=== PATIENT | female | born 1945 | race Two or more races ===

== ENCOUNTER 2018-08-08 09:45 | Emergency (ER) | payer SELFPAY ==
[~2018-08-08] VITALS: Ht 154.9 cm; Wt 68.2 kg
[2018-08-08 09:47] VITALS: BP 134/73
[2018-08-08] MEDS ORDERED: ACAR100T2 PO (09:56)
[2018-08-08] MEDS ORDERED: METF-446 PO (09:56)
[2018-08-08] MEDS ORDERED: PIOG15TA23 PO (09:56)
[2018-08-08] MEDS ORDERED: ENAL10TA PO (09:56)
[2018-08-08] MEDS ORDERED: SIMV20TA6 PO (09:56)
[2018-08-08] MEDS ORDERED: GLIP10TA9 PO (09:56)
== END 2018-08-08 11:14 | disposition left against medical advice (07) ==
LOC: EMS 09:56
DX: R07.89 Other chest pain (principal); R10.9 Unspecified abdominal pain; R19.7 Diarrhea, unspecified; Z53.21 Procedure and treatment not carried out due to patient leaving prior to being seen by health care provider
CPT/HCPCS: 93005